=== PATIENT | male | born 1990 | race Caucasian/White ===

== ENCOUNTER 2021-05-04 17:34 | Emergency (ER) | payer OTHER ==
[~2021-05-04] VITALS: Ht 177.8 cm; Wt 61.7 kg
--- NOTE | 2021-05-04 17:50 | NUR ---
BIBS FOR C/O LEFT FLANK PAIN AND HEMATURIA/DYSURIA TODAY. RATES PAIN 6/10. ABDOMEN SOFT AND NON-DISTENDED. WILL CONTINUE TO MONITOR THE PATIENT.
[2021-05-04 18:54] LABS: BASOPHILS % (AUTO) 0.5 % (0.0-2.0); EOSINOPHILS % (AUTO) 2.4 % (0.0-6.0); HEMATOCRIT 45 % (39-51); LYMPHOCYTES % (AUTO) 25.3 % (20.0-44.0); MEAN CORPUSCULAR HGB CONC 34 g/dl (31.0-36.0); MEAN CORPUSCULAR VOLUME 87 fL (80-96); MONOCYTES # (AUTO) 0.6 K/uL (0.1-1.30); MONOCYTES % (AUTO) 7.5 % (2.0-12.0); NEUTROPHILS % (AUTO) 64.3 % (43.0-81.0); PLATELET COUNT (AUTO) 239 K/uL (150-450); RED BLOOD CELL COUNT(AUTO) 5.14 MIL/uL (4.5-6.0); WHITE BLOOD COUNT (AUTO) 7.8 K/uL (4.3-11.0)
[2021-05-04 19:02] LABS: ALBUMIN 4.5 g/dL (3.4-5.0); BILIRUBIN,DIRECT 0.2 mg/dL (0.0-0.2); BILIRUBIN,TOTAL 0.9 mg/dL (0.2-1.0); CALCIUM, SERUM 9.6 mg/dL (8.5-10.1); CREATININE 1.1 mg/dL (0.6-1.3); POTASSIUM 3.5 mmol/L (3.5-5.1); TOTAL PROTEIN, SERUM 7.5 g/dL (6.4-8.2)
[2021-05-04 19:07] LABS: COLOR,URINE AMBER (YELLOW); NITRITE, URINE Negative (NEGATIVE); UGLUCOSE Negative (NEGATIVE)
[2021-05-04 19:13] LABS: LEUKOCYTE ESTERASE ,URINE 1+ (NEGATIVE)
[2021-05-04 19:14] LABS: UROBILINOGEN,URINE 0.2 EU/dL (0.2)
[2021-05-04 19:15] LABS: BILIRUBIN,URINE SMALL (NEGATIVE); PROTEIN,URINE 4+ mg/dl (NEGATIVE)
[2021-05-04] MEDS ORDERED: TAMS-12 PO (19:28)
--- NOTE | 2021-05-04 19:42 | NUR ---
PATIENT A/OX4, BREATHING EVEN AND UNLABORED, NO SOB NOTED, NEEDS ATTENDED. DENIES ANY PAIN AT THIS TIME. Patient discharged to home in stable condition. Written and verbal after care instructions given. Patient verbalizes understanding of instruction.
[2021-05-04 19:43] VITALS: BP 132/65
[2021-05-04 19:52] LABS: BACTERIA,URINE None seen /HPF (None Seen); RBC,URINE TOO NUMEROUS TO COUN /HPF (0-2); SQUAMOUS EPITHELIAL CELL,UR Few /HPF (None Seen)
== END 2021-05-04 19:44 | disposition home or self-care (01) ==
LOC: ER 17:34
DX: N20.0 Calculus of kidney (principal)
CPT/HCPCS: 36415; 80048-TC; 80076-TC; 81001; 83690-TC; 85025-TC; 87086-TC